=== PATIENT | female | born 1980 | race Caucasian/White ===

== ENCOUNTER → 2016-11-29 | Outpatient (CLI) | payer OTHER ==
[~2016-11-29] MED LIST: CZR50 PO; MULT-726 PO; PRT/20 PO
--- NOTE | 2016-11-29 07:47 | DIAGNOSTIC IMAGING REPORT ---
BILIARY ULTRASOUND CLINICAL HISTORY: J39.2,R10.11,E80.7 elevated bilirubin. Abdominal pain. COMPARISON STUDY: No previous studies for comparison. FINDINGS: The pancreas appears sonographically normal. No focal hepatic masses are visualized. There is equivocal slight increase in hepatic echogenicity. There is no ductal dilatation. The common bile duct measures 3 mm. The gallbladder appears sonographically normal. There is no right-sided hydronephrosis. IMPRESSION: Equivocal slight increase in hepatic echogenicity. Otherwise normal biliary ultrasound. Electronically signed by: Randy Almeida M.D. 11/29/2016 7:46 AM Dictated Date/Time: 11/29/2016 7:45 AM
--- NOTE | 2016-11-29 08:14 | DIAGNOSTIC IMAGING REPORT ---
CT SOFT TISSUE NECK WITH CT DOSE: 664.90 mGycm CLINICAL HISTORY: Pharyngeal edema PAINFUL SWALLOWING TECHNIQUE: Helical images were acquired during intravenous administration of 92 cc of Optiray 320. COMPARISON STUDY: None. FINDINGS: The visualized portions of the lung apices are unremarkable. No thyroid masses are visualized. No salivary gland masses are visualized. There are no pathologically enlarged cervical lymph nodes. No necrotic nodes are evident. There are no fluid collections suspicious for abscess. There is no evidence of airway compromise. No mucosal space masses are visualized. There are degenerative changes in the cervical spine most pronounced the C5-6 level. IMPRESSION: 1. No evidence of pathologic adenopathy 2. No pathologic masses identified. 3. No acute inflammatory changes. Electronically signed by: Randy Almeida M.D. 11/29/2016 8:13 AM Dictated Date/Time: 11/29/2016 8:10 AM
[2016-11-29 09:38] LABS: URINE APPEARANCE CLEAR (CLEAR); URINE BILIRUBIN NEG (NEG); URINE COLOR YELLOW; URINE NITRITE NEG (NEG); UROBILINOGEN NEG (NEG); ZZUR CULT IF INDIC CLEAN CATCH NO
[2016-11-29 09:46] LABS: MANUAL MICROSCOPIC REQUIRED? NO; REVIEW REQ? NO
== END | disposition home or self-care (01) ==
LOC: C.ULTR 07:02
PROVIDERS: ATTEND Family Medicine
DX: E80.7 Disorder of bilirubin metabolism, unspecified (principal); R10.11 Right upper quadrant pain; I10 Essential (primary) hypertension; J39.2 Other diseases of pharynx; K21.9 Gastro-esophageal reflux disease without esophagitis

== ENCOUNTER 2017-04-24 19:53 | Emergency (ER) | payer OTHER ==
[~2017-04-24] VITALS: Ht 165.1 cm; Wt 88.3 kg
[2017-04-24 19:57] VITALS: TEMP 36.8; Ht 165.1 cm; Wt 88.3 kg
[2017-04-24] MEDS ORDERED: CZR50 PO (20:32)
[2017-04-24] MEDS ORDERED: MULT-726 PO (20:32)
[2017-04-24] MEDS: ALUMINUM/MAGNESIUM SUSP 30 ML UDC PO STA (20:59)
[2017-04-24] MEDS: FAMOTIDINE 20 MG TAB PO ONE (20:59)
[2017-04-24] MEDS: LIDOCAINE HCL 2% VISC SOLN 20 ML UDC PO STA (21:00)
[2017-04-24] MEDS ORDERED: PRT/20 PO (21:11)
[2017-04-24 21:39] VITALS: BP 151/93; PULSE 86; O2SAT 96
--- NOTE | 2017-04-24 22:41 | EMERGENCY ROOM VISIT NOTE ---
History Report prepared by Jaqueline: Sreekanth Patel Under the Supervision of: Dr. Davie Hein M.D. First contact with patient: 20:17 Chief Complaint: ABDOMINAL PAIN Stated Complaint: LEFT UPPER QUADRENT PAIN, NAUSEA Nursing Triage Summary: LUQ pain for a few days. Seen by PCP had CT SCAN and Xray and lab work. Patient states CT and Xray were negative but Labwork was elevated. Patient unsure what all labs were elevated. Also c/o nausea History of Present Illness The patient is a 36 year old female who presents to the Emergency Room with complaints of intermittent left upper quadrant abdominal pain beginning a few days ago. The patient states her discomfort radiates to her back. She reports her discomfort is sharp, and it sometimes barlow. The patient notes she has a history of kidney stones, and her discomfort feels similar, but she has never had left upper quadrant abdominal pain. She states she has been experiencing diarrhea and nausea as well for the past few days. Her diarrhea is only mild. She has had no foreign travel or recent antibiotic use. The patient reports her discomfort increases when she eats or drinks. She notes she was evaluated at [facility] today and had a urinalysis and CT that were negative. The patient states she was told to come to the ED for further evaluation. She was told her globulin was increased. She was also told that she may need fluids, antibiotics and pain control. She reports she has a history of GERD, and she takes TUMs as need. The patient notes she has not tried TUMs yet for her current conditions. She denies blood in her urine, pain with urination, fevers, and vomiting. Source of History: patient Onset: few days ago Position: abdomen (LUQ) Quality: burning (occasional), sharp Timing: intermittent Modifying Factors (Worsening): eating, drinking Associated Symptoms: + nausea, + diarrhea, No fevers, No vomiting Note: Denies: hematuria, dysuria Review of Systems See HPI for pertinent positives & negatives. A total of 10 systems reviewed and were otherwise negative. Past Medical & Surgical Medical Problems: (1) GERD (gastroesophageal reflux disease) (2) Intravenous Pyelogram (3) Kidney stones Family History Diabetes mellitus FHx: cancer FHx: heart disease Hypertension Kidney disease Social History Smoking Status: Never Smoker Alcohol Use: occasionally Drug Use: none Marital Status: Housing Status: lives with family Occupation Status: employed Current/Historical Medications Scheduled Losartan Potassium (Losartan Potassium), 50 MG PO QAM Multiple Vitamins W/ Minerals (Thrive [employer] Womens), 1 TAB PO DAILY Pantoprazole (Protonix), 20 MG PO DAILY Allergies Coded Allergies: Penicillins (Verified Allergy, Intermediate, HIVES, 04/24/17) Physical Exam Vital Signs Date Time Temp Pulse Resp B/P (MAP) Pulse Ox O2 Delivery O2 Flow Rate FiO2 04/24/17 21:39 86 20 151/93 96 04/24/17 19:57 36.8 83 16 154/95 98 Room Air Physical Exam Constitutional: Vital signs reviewed. Eyes: Pupils are equal round reactive to light. Conjunctiva are noninjected. ENT: Pharynx is clear without erythema or exudate. Mucous membranes are moist. Neck supple without meningeal signs. Respiratory: Clear to auscultation bilaterally. Breath sounds are equal bilaterally. Cardiovascular: Regular rate and rhythm. No rubs or gallops. GI: Soft, nondistended and left upper quadrant tenderness. No guarding. Bowel sounds are present. Musculoskeletal: No peripheral edema. No lower extremity tenderness. Integumentary: No cyanosis. Neurological: The patient is awake and alert. No focal deficits. Psychiatric: Normal affect. Medical Decision & Procedures Medications Administered Medications (Trade) Dose Ordered Sig/Laura Route Start Time Stop Time Status Last Admin Dose Admin Lidocaine HCl (Viscous Lidocaine 2% Soln) 10 ml NOW STAT PO 04/24/17 20:26 04/24/17 20:27 DC 04/24/17 21:00 10 ML Al Hydroxide/Mg Hydroxide (Maalox Susp) 30 ml NOW STAT PO 04/24/17 20:26 04/24/17 20:27 DC 04/24/17 20:59 30 ML Famotidine (Pepcid Tab) 20 mg NOW ONCE PO 04/24/17 20:30 04/24/17 20:31 DC 04/24/17 20:59 20 MG ED Course 2019: The patient was evaluated in room C08. A complete history and physical exam was performed. 2025: Ordered Maalox Susp 30ml PO, Lidocaine HCl 10ml PO 2029: Ordered Famotidine 20mg PO 2045: I reevaluated the patient. I discussed her lab results from [facility]. She agreed additional testing is not needed. I am going to put her on PPI, and she is going to follow up with GI. 2109: Upon reevaluation, the patient appeared to have improvement of her symptoms. I discussed tejal's findings with her. She verbalized agreement of the treatment plan. The patient was discharged home. Medical Decision This is a 36-year-old female presents with a two-day history of abdominal pain. Differential diagnosis includes renal colic, peptic ulcer disease, pancreatitis, inflammatory bowel disease, enteritis, irritable bowel syndrome. I did perform a limited focused review of portions of the patient's old chart on the electronic medical record. The patient has had no recent pertinent visits to this hospital. I did evaluate the patient as noted above. She is presenting with a 2 day history of left-sided abdominal pain. She has some tenderness to the left upper quadrant. She does state that her pain is worse after eating or drinking. 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 Her laboratory results showed: WBC of 10.4, an unremarkable chemistry panel that included LFTs, amylase, and lipase levels. Her globulin was minimally elevated which is of unclear clinical significance. I did discuss the test results with the patient. She states that she already knew about the developmental malrotation. Given she has these findings done today I did not see any need for repeat testing. She is able to take by mouth and does not require IV fluids. I did not feel antibiotics were indicated given any lack of findings on CT scanning and only mild diarrhea. Her abdominal pain was concerning for possible peptic ulcer disease, although other etiologies are certainly possible. I did treat her with a GI cocktail and Pepcid. She was given a prescription for Protonix and given dietary restrictions. She was advised follow up closely with her doctor for further evaluation and referral to GI. She was discharged in good condition. Medication Reconcilliation Current Medication List: was personally reviewed by me Blood Pressure Screening Patient's blood pressure: Elevated blood pressure Blood pressure disposition: Referred to PCP Impression Primary Impression: Upper abdominal pain Scribe Attestation The scribe's documentation has been prepared under my direct and personally reviewed by me in its entirety. I confirm that the note above accurately reflects all work, treatment, procedures, and medical decision making performed by me. Departure Information Dispostion Home / Self-Care Prescriptions Pantoprazole (Protonix) 20 Mg Tab 20 MG PO DAILY, #20 TAB Prov: Davie Hein M.D. 04/24/17 Referrals Jeffrey Regan M.D. (PCP) Forms Call Back Authorization, HOME CARE DOCUMENTATION FORM, IMPORTANT VISIT INFORMATION Patient Instructions ED Abdominal Pain Unkn Cause, My [facility] Additional Instructions You have been examined and treated today on an emergency basis only. This is not a substitute for, or an effort to provide, complete comprehensive medical care. It is impossible to recognize and treat all injuries or illnesses in a single emergency department visit. It is therefore important that you follow up closely with your physician. Call as soon as possible for an appointment. Return for worsening symptoms or if you develop fever, vomiting, black or tarry stools, blood in your stool or any other concerning symptoms.
== END 2017-04-24 21:41 | disposition home or self-care (01) ==
LOC: C.EDB 19:54 → C.EDC 21:41
DX: R10.12 Left upper quadrant pain (principal); K21.9 Gastro-esophageal reflux disease without esophagitis; N83.201 Unspecified ovarian cyst, right side; Z87.442 Personal history of urinary calculi; Z79.899 Other long term (current) drug therapy; Z88.0 Allergy status to penicillin; Z83.3 Family history of diabetes mellitus; Z80.9 Family history of malignant neoplasm, unspecified; Z82.49 Family history of ischemic heart disease and other diseases of the circulatory system; Z84.1 Family history of disorders of kidney and ureter

== ENCOUNTER → 2017-06-08 | Outpatient (CLI) | payer OTHER ==
[2017-06-08 12:32] LABS: BASO % 0.5 %; BASO ABS # 0.04 K/uL (0-0.2); COMPLETE YES; EOS % 2.4 %; HEMATOCRIT 37.6 % (37-47); IG% 0.3 %; LYMPH % 23.6 %; MEAN CELL VOLUME 82.1 fL (80-100); MEAN CORPUSCULAR HEMOGLOBIN 27.5 pg (25-34); MEAN CORPUSCULAR HGB CONC 33.5 g/dl (32-36); MEAN PLATELET VOLUME 10.2 fL (7.4-10.4); MONO % 5.9 %; NEUT % 67.3 %; PLATELET COUNT 349 K/uL (130-400); RED BLOOD COUNT 4.58 M/uL (4.2-5.4); WHITE BLOOD COUNT 7.62 K/uL (4.8-10.8)
[2017-06-08 12:39] LABS: ALT/SGPT 35 U/L (12-78); AST/SGOT 11 U/L (15-37); BLOOD UREA NITROGEN 10 mg/dl (7-18); BUN/CREATININE RATIO 14.8 (10-20); CALCIUM 9.1 mg/dl (8.5-10.1); CARBON DIOXIDE 27 mmol/L (21-32); CHLORIDE 105 mmol/L (98-107); CREATININE 0.67 mg/dl (0.60-1.20); GLUCOSE 86 mg/dl (70-99); POTASSIUM 4.3 mmol/L (3.5-5.1); SODIUM 139 mmol/L (136-145)
[2017-06-08 12:42] LABS: ALB/GLOB RATIO 1.1 (0.9-2); ALKALINE PHOSPHATASE 93 U/L (45-117); CHOLESTEROL 159 mg/dl (0-200); CHOLESTEROL/HDL RATIO 3.8; HDL CHOLESTEROL 42 mg/dl; LDL CHOLESTEROL CALCULATED 99 mg/dl; TRIGLYCERIDES 90 mg/dl (0-150); VERY LOW DENSITY LIPOPROT CALC 18 mg/dl
== END | disposition home or self-care (01) ==
LOC: C.LABBFT 07:50
PROVIDERS: ATTEND Internal Medicine
DX: Z00.00 Encounter for general adult medical examination without abnormal findings (principal); I10 Essential (primary) hypertension; L68.0 Hirsutism; R01.1 Cardiac murmur, unspecified; R10.12 Left upper quadrant pain